=== PATIENT | male | born 1960 | race Caucasian/White ===

== ENCOUNTER 2017-03-13 09:50 | Day surgery (SDC) | payer BC ==
--- NOTE | 2017-02-25 11:51 | P.GSHP ---
History of Present Illness H&P Date: 02/25/17 Chief Complaint: Change in bowel habits Patient was in the office for evaluation of right inguinal hernia. Also has complaints of a small umbilical hernia. During the office visit he described increasing constipation and smaller stools. Increased pain at the hernia site with straining. He had a history of previous da Rosendo prostatectomy. No recent colonoscopy. Last colonoscopy believed to be 9 years ago. No family history of colon cancer. Surgical - Exam Physical exam: General: Well-developed, well-nourished HEENT: Normocephalic, sclerae nonicteric Abdomen: Nontender, nondistended, small reducible umbilical hernia, reducible right inguinal hernia, both testes normal, no palpable hernia on left Extremities: No edema Neuro: Alert and oriented Assessment and Plan (1) Right inguinal hernia Narrative/Plan: Will proceed with colonoscopy on 03/13. Risks of bleeding and bowel perforation discussed. Plan da Rosendo herniorrhaphy following that. Status: Acute
[2017-03-08 14:52] VITALS: BMI 25.8
[~2017-03-13 09:50] MED LIST: LACTATED RINGERS 1,000 ML IV SCH; LIDOCAINE 1% 20 ML VIAL (10MG/ML) FOR IV START INTRADERMA PRN
[2017-03-13 10:30] VITALS: RESP 16; TEMP 97.7
[2017-03-13] MEDS ORDERED: PROPOFOL 10 MG/ML 20 ML VIAL IV ONE (11:07)
[2017-03-13] MEDS ORDERED: LIDOCAINE 1% INJ 10MG/ML (20 ML MDV) ONE (11:07)
--- NOTE | 2017-03-13 11:52 | P.PCN ---
Date of Procedure: 03/13/17 Preoperative Diagnosis: Postoperative Diagnosis: Procedure(s) Performed: PREOPERATIVE DIAGNOSIS: Change in bowel habits POSTOPERATIVE DIAGNOSIS: Mild proctitis PROCEDURE: Colonoscopy with biopsy ANESTHESIA: MAC SURGEON: Randall Kline M.D. SPECIMENS: Distal rectum ENDOSCOPIC PROCEDURE: The patient was placed on the endoscopy table in the left decubitus position. The Olympus colonoscope was inserted into the anus and passed under direct visualization to the base of the cecum. The appendiceal orifice was visualized. From that point the scope was slowly withdrawn inspecting all surfaces carefully. There were no neoplastic inflammatory or polypoid lesions throughout the cecum, ascending, transverse, descending, and sigmoid colon. At the distal rectum there was 4-5 cm of proctitis present. This is likely related to the patient's personal history of prostate cancer. 2 small biopsies were taken using the cold biopsy forceps. No diverticulosis was seen. Digital rectal examination was normal. The patient was taken to the recovery room in stable condition per anesthesia guidelines. RECOMMENDATIONS: Await biopsy results. Follow-up colonoscopy in 10 years. Implants: Indications for Procedure: Operative Findings: Description of Procedure:
[2017-03-13 11:58] VITALS: BP 121/88; PULSE 60
== END 2017-03-13 12:24 | disposition home or self-care (01) ==
LOC: ORWHC2ENDO 09:50
PROVIDERS: ATTEND Surgery
DX: R19.4 Change in bowel habit (principal); K62.89 Other specified diseases of anus and rectum; Z85.46 Personal history of malignant neoplasm of prostate; Z90.79 Acquired absence of other genital organ(s); K40.90 Unilateral inguinal hernia, without obstruction or gangrene, not specified as recurrent; K42.9 Umbilical hernia without obstruction or gangrene; K21.9 Gastro-esophageal reflux disease without esophagitis; Z79.899 Other long term (current) drug therapy
CPT/HCPCS: 88305; 45380; J2001; J2704

== ENCOUNTER → 2022-08-27 | Outpatient (CLI) | payer BC ==
[2022-08-27 15:14] LABS: HCT 48.2 % (39.6-50.0); HGB 15.5 g/dL (13.0-17.0); MCHC 32.2 g/dL (32.0-37.0); MCV 102.8 fL (80.0-97.0); Mean Platelet Volume 9.5 fL (9.5-12.2); NRBC Per 100 WBC 0 /100 WBCS (0.0-0.0); Platelet Count 269 X 10*3/uL (140-440); RBC 4.69 X 10*6/uL (4.40-5.60); RDW 12.8 % (11.5-14.5)
== END | disposition home or self-care (01) ==
LOC: LABPAT 08:14
PROVIDERS: ATTEND Surgery
DX: Z01.818 Encounter for other preprocedural examination (principal); K40.30 Unilateral inguinal hernia, with obstruction, without gangrene, not specified as recurrent; R00.1 Bradycardia, unspecified; R94.31 Abnormal electrocardiogram [ECG] [EKG]
CPT/HCPCS: 85027; 93005

== ENCOUNTER → 2023-11-18 | Outpatient (CLI) | payer BC ==
--- NOTE | 2023-11-21 16:54 | XR ---
EXAMINATION TYPE: XR foot complete RT DATE OF EXAM: 11/18/2023 COMPARISON: NONE HISTORY: 63-year-old male, pain near the fourth and fifth toes TECHNIQUE: 3 views FINDINGS: Moderate degenerative change first MTP joint. There appears to be bony injury to the subcho ndral bone plate of the first metatarsal head. Mild bunion formation. Small os peroneum. Calcificatio n along the distal Achilles tendon suggesting chronic tendinopathy. Tiny plantar heel spur. No acute fracture, subluxation, or dislocation is seen. IMPRESSION: 1. Moderate first MTP joint OA. 2. Chronic insertional Achilles tendinopathy. 3. No acute osseous abnormality seen.
== END | disposition home or self-care (01) ==
LOC: RADXRMAIN 16:06
PROVIDERS: ATTEND Family Medicine
DX: M19.071 Primary osteoarthritis, right ankle and foot (principal); M67.873 Other specified disorders of tendon, right ankle and foot

== ENCOUNTER 2024-06-12 08:07 | Emergency (ER) | payer BC, MEDICARE ==
[2024-06-12 08:16] VITALS: RESP 18; TEMP 98
--- NOTE | 2024-06-12 08:32 | ED ---
Upper Extremity HPI - General Chief Complaint: Wound/Laceration Stated Complaint: Left hand injury Time Seen by Provider: 06/12/24 08:18 Source: patient, family, RN notes reviewed Mode of arrival: ambulatory Limitations: no limitations, physical limitation - History of Present Illness Initial Comments: This is a 64-year-old male who presents to the emergency department for an upper extremity injury. Patient was moving an air compressor when it slipped, causing injuries to fingers on both hands. States that it was the right fourth finger and left third and fourth finger that were damaged. States that the fingertips were torn off and are barely attached. Unsure when his last tetanus vaccine was. Not taking any blood thinners. Denies sustaining any additional injuries. MD Complaint: Injury to:: left, right, hand, finger - Related Data Home Medications Medication Instructions Recorded Confirmed Omeprazole 20 mg PO DAILY 03/08/17 08/28/22 Cetirizine HCl [Zyrtec] 10 mg PO DAILY 08/28/22 08/28/22 Previous Rx's Medication Instructions Recorded oxyCODONE HCL [OxyIR] 5 mg PO Q6H PRN 3 Days #6 tab 08/31/22 Cephalexin [Keflex] 500 mg PO Q6HR 7 Days #28 cap 06/12/24 HYDROcodone/APAP 5-325MG [[place] 1 tab PO Q6HR PRN 3 Days #12 tab 06/12/24 5-325] Ibuprofen [Motrin] 800 mg PO Q8H PRN #30 tab 06/12/24 Allergies Allergy/AdvReac Type Severity Reaction Status Date / Time cat dander Allergy Itching Verified 06/12/24 08:11 dog dander Allergy Itching Verified 06/12/24 08:11 mold Allergy Itching Verified 06/12/24 08:11 Review of Systems ROS Statement: Those systems with pertinent positive or pertinent negative responses have been documented in the HPI. ROS Other: All systems not noted in ROS Statement are negative. Past Medical History Past Medical History: Cancer, Prostate Disorder Additional Past Medical History / Comment(s): CA of Prostate. HAS RT INGUINAL HERNIA. History of Any Multi-Drug Resistant Organisms: None Reported Past Surgical History: Hernia Repair, Orthopedic Surgery, Prostate Surgery Additional Past Surgical History / Comment(s): ORIF RT ARM. Colonoscopy Past Anesthesia/Blood Transfusion Reactions: No Reported Reaction Past Psychological History: No Psychological Hx Reported Smoking Status: Former smoker Past Alcohol Use History: Occasional Past Drug Use History: None Reported - Past Family History Sister(s) Family Medical History: Cancer General Exam General appearance: alert, in no apparent distress Head exam: Present: atraumatic, normocephalic, normal inspection Respiratory exam: Present: normal lung sounds bilaterally. Absent: respiratory distress, wheezes, rales, rhonchi, stridor Cardiovascular Exam: Present: regular rate, normal rhythm, normal heart sounds. Absent: systolic murmur, diastolic murmur, rubs, gallop, clicks Extremities exam: Present: other (Partial amputation to the tip of the right fourth finger and left middle finger with active bleeding and visible subcutaneous tissues. Both fingernails are dislodged. Less extensive lacerations to the left index and ring finger as well. Visible subcutaneous tissue.) Neurological exam: Present: alert, oriented X3, CN II-XII intact Psychiatric exam: Present: normal affect, normal mood Course Vital Signs 06/12/24 06/12/24 08:11 11:36 Temperature 98.0 F 98.0 F Pulse Rate 89 65 Respiratory 18 18 Rate Blood Pressure 128/89 129/89 O2 Sat by Pulse 98 100 Oximetry Procedures - Laceration Laceration #1 Consent Obtained: verbal consent Indication: laceration Site: other (Right ring finger) Size (cm): 8 Description: flap, irregular Anesthetic Used: benzocaine 0.25%, lidocaine 1% Anesthesia Technique: nerve block Amount (mls): 4 Pre-repair: wound explored, irrigated extensively, wound margins revised Type of Sutures: nylon Size of Sutures: 6-0 Technique: simple, interrupted Laceration #2 Consent Obtained: verbal consent Indication: laceration Site: other (Left middle finger) Size (cm): 8 Description: stellate, flap, avulsion, irregular Anesthetic Used: benzocaine 0.25%, lidocaine 1% Anesthesia Technique: nerve block Amount (mls): 4 Pre-repair: wound explored, irrigated extensively, wound margins revised Type of Sutures: nylon Size of Sutures: 6-0 Technique: simple, interrupted Laceration #3 Consent Obtained: verbal consent Indication: laceration Site: other (left index finger) Size (cm): 3 Description: linear Depth: simple, single layer Anesthetic Used: benzocaine 0.25%, lidocaine 1% Anesthesia Technique: local infiltration Amount (mls): 3 Pre-repair: wound explored, irrigated extensively Type of Sutures: nylon Size of Sutures: 6-0 Technique: simple, interrupted Laceration #4 Consent Obtained: verbal consent Indication: laceration Site: other (Left ring finger) Size (cm): 2 Description: linear Depth: simple, single layer Anesthetic Used: benzocaine 0.25%, lidocaine 1% Anesthesia Technique: local infiltration Amount (mls): 3 Pre-repair: wound explored, irrigated extensively Type of Sutures: nylon Size of Sutures: 6-0 Technique: simple, interrupted - Nerve Block Consent Obtained: verbal consent Local Anesthetic Used: Lidocaine 1% Amount of anesthesia used: 5 Side: left, right Nerve Blocks: digital Procedure Successful: Yes Medical Decision Making - Medical Decision Making This is a 64 year old male who presents to the emergency department for an injury to multiple fingers. Was pt. sent in by a medical professional or institution? @ -No Did you speak to anyone other than the patient for history? @ -No Did you review nursing and triage notes? @ -Yes, and I agree, it is accurate with regards to the patient's symptoms. Were old charts reviewed? @ -No Differential Diagnosis? @ -Differential Musculoskeletal: Muscular strain, contusion, ligament sprain, fracture, arthritis, septic arthritis, bursitis, cellulitis, muscle spasm, nerve compression, DVT, arterial occlusion, herpes zoster, electrolyte abnormality, tumor.... This is not meant to be in all inclusive list EKG interpreted by me (3pts min.)? @ -Not obtained X-rays interpreted by me (1pt min.)? @ -X-ray of the bilateral hands obtained. My interpretation identifies distal tuft fractures on the left middle and index finger as well as the right ring finger. CT interpreted by me (1pt min.)? @ -Not obtained U/S interpreted by me (1pt. min.)? @ -Not obtained What testing was considered but not performed? (CT, X-rays, U/S, labs)? Why? @ -None What meds were considered but not given? Why? @ -None Did you discuss the management of the patient with other professionals? @ -No Did you reconcile home meds? @ -No Was smoking cessation discussed for >3mins.? @ -No Was critical care preformed (if so, how long)? @ -No Were there social determinants of health that impacted care today? How? (Homelessness, low income, unemployed, alcoholism, drug addiction, transportation, low edu. Level, literacy, decrease access to med. care, shelter, rehab)? @ -No Was there de-escalation of care discussed even if they declined? (Discuss DNR or withdrawal of care, Hospice)? @ -No What co-morbidities impacted this encounter? (DM, HTN, Smoking, COPD, CAD, Cancer, CVA, Hep., AIDS, mental health diagnosis, sleep apnea, morbid obesity)? @ -None Was patient admitted / discharged? @ -Discharged. On exam he had partial amputation of the left middle finger and right ring finger. He also had 2 additional lacerations on the left hand. X- ray demonstrates fractures of the distal wang on the left middle and left index finger as well as the right ring finger. The wounds were thoroughly cleansed and 2 g of Ancef was administered. Tetanus vaccine was updated. Digital block using lidocaine with bupivacaine was performed. The fingertips were able to be reattached and the nails were secured in place with a suture as well. He maintained flexion and extension of the fingers. The 2 additional lacerations were also repaired with sutures. After repair both fingers were bandaged and splints were applied to the broken fingers including the left middle and index finger as well as the right ring finger. Discussed that given the substantial injuries, these are at high risk of infection. Keflex prescribed for infectious prophylaxis. Ibuprofen and [place] prescribed for pain control. Also advised that he will need to follow-up with orthopedics for reevaluation. He is established with Dr. Sandoval at [facility]. Advised follow-up with him or one of the hand specialists at their facility. Patient discharged home in stable condition. Case discussed with ED attending Dr. Augustine. Return precautions reviewed in depth, the patient is instructed to return to the emergency department with any new, worsening, or concerning symptoms. Patient verbalized understanding. Undiagnosed new problem with uncertain prognosis? @ -None Drug Therapy requiring intensive monitoring for toxicity (Heparin, Nitro, Insulin, Cardizem)? @ -None Were any procedures done? @ -Digital block and suture repair of 2 lacerations and 2 partial amputations on the fingers Diagnosis/symptom? @ -Open tuft fracture of fingers, laceration, crushing injury of fingers Acute, or Chronic, or Acute on Chronic? @ -Acute Uncomplicated (without systemic symptoms) or Complicated (systemic symptoms)? @ -Uncomplicated Side effects of treatment? @ -None Exacerbation, Progression, or Severe Exacerbation] @ -Not applicable Poses a threat to life or bodily function? @ -This will limit his use of his hands for the mean time. - Radiology Data Radiology results: report reviewed, image reviewed Disposition Clinical Impression: Laceration, Open fracture of tuft of distal phalanx of finger, Crushing injury of finger(s) Disposition: HOME SELF-CARE Instructions (If sedation given, give patient instructions): Care For Your Stitches (ED), Finger Fracture (ED) Additional Instructions: Return to the emergency department with any new, worsening, or concerning symptoms. Take the antibiotic as prescribed for 7 days. Alternate with ibuprofen and Tylenol as needed for pain relief. Take the [place] sparingly when your pain is the most severe. The stitches will need to be removed in 7 to 10 days. This can be done with orthopedics or you can return to the emergency department to have them removed. Follow-up with orthopedics as listed below. Prescriptions: Cephalexin [Keflex] 500 mg PO Q6HR 7 Days #28 cap Ibuprofen [Motrin] 800 mg PO Q8H PRN #30 tab PRN Reason: Pain HYDROcodone/APAP 5-325MG [[place] 5-325] 1 tab PO Q6HR PRN 3 Days #12 tab PRN Reason: Pain Is patient prescribed a controlled substance at d/c from ED?: Yes When asked, does pt state using other controlled substances?: No If prescribed controlled substance>3 days was MAPS reviewed?: Prescribed <3 Days Referrals: Ollie Romero MD [Primary Care Provider] - 1-2 days Charli Sandoval DO [Doctor of Osteopathic Medicine] - 1-2 days Time of Disposition: 10:59
--- NOTE | 2024-06-12 08:43 | XR ---
EXAMINATION TYPE: XR hand complete bilateral DATE OF EXAM: 06/12/2024 8:35 AM COMPARISON: None. CLINICAL INDICATION: Male, 64 years old with history of Injury, TECHNIQUE: 3 views view(s) obtained bilateral hands. FINDINGS: Left hand: There is a transverse fracture of the distal tuft of the middle finger. Nondisplaced tuft fracture of the index finger is present. No additional fractures evident. Right hand: There is fracture of the distal phalanx ring finger right hand. Soft tissue injury over t he dorsal distal ring finger is evident. Additional fractures evident. IMPRESSION: 1. Fractures of the distal wang of the left middle finger on the left index finger, and right ring finger. Soft tissue injury are over the left middle finger and right ring finger. [facility], , 06/12/2024 8:41 AM
[2024-06-12] MEDS: MORPHINE SULFATE 4 MG/ML SYRINGE IVP STA ×2 (08:51→11:31)
[2024-06-12] MEDS: DIPH,PERTUS(ACELL)TETVAC-LF 0.5 ML VIAL IM ONE (08:56)
[2024-06-12] MEDS: BUPIVACAINE (PF) 0.5% 30 ML VIAL SQ STA (09:04)
[2024-06-12] MEDS: LIDOCAINE 1% INJ 10MG/ML (20 ML MDV) SQ ONE (09:05)
[2024-06-12 11:43] VITALS: BP 129/89; PULSE 65
== END 2024-06-12 11:43 | disposition home or self-care (01) ==
LOC: EC 08:07
DX: S67.20XA Crushing injury of unspecified hand, initial encounter (principal); S62.633B Displaced fracture of distal phalanx of left middle finger, initial encounter for open fracture; S62.635B Displaced fracture of distal phalanx of left ring finger, initial encounter for open fracture; Z87.891 Personal history of nicotine dependence; Z91.048 Other nonmedicinal substance allergy status; W01.0XXA Fall on same level from slipping, tripping and stumbling without subsequent striking against object, initial encounter
CPT/HCPCS: 73130; 90715; 99283; 96365; 96375 ×2; 96376; 96372 ×3; J2270; J0690; J2003; J0665